=== PATIENT | male | born 1980 | race Caucasian/White ===

== ENCOUNTER 2017-01-18 02:03 | Emergency (ER) | payer BC ==
[~2017-01-18] VITALS: Ht 180.3 cm; Wt 80.0 kg
[2017-01-18 02:06] VITALS: BP 129/88; PULSE 112; RESP 15; TEMP 97.7; O2SAT 96
[2017-01-18] MEDS ORDERED: XANA2TAB2 PO (02:10)
[2017-01-18] MEDS ORDERED: DILA8TAB4 PO (02:10)
[2017-01-18 02:26] VITALS: BP 125/82; PULSE 97; RESP 18; O2SAT 96
--- NOTE | 2017-01-18 02:35 | PD ---
HPI Chief Complaint: Pain: Acute or Chronic Time Seen by Provider: 02:35 Travel History International Travel<30 days: No Contact w/Intl Traveler<30days: No Traveled to known affect area: No History of Present Illness HPI 36-year-old male came to the emergency room with history of left-sided chest pain and the rib area after he fell a week ago. Patient says the pain gets worse when he coughs deep. He also says that he has had this cough for 2-3 weeks. Patient is a heavy smoker. He has had cough and shortness of breath in the past which usually gets better with inhaler. Patient says he has inhaler at home but hasn't used it. When he first came in he was tachycardic. However patient after coming in the room his heart rate has been in the 80s. No history of fever or chills. No history of PE or DVT in patient or his family. No history of long distance travel, procedures or surgery and recent past. PFSH Past Medical History Narrative Medical List of his past medical, surgical, social and family history is reviewed from the nursing note. Anxiety: Yes Diminished Hearing: No Tetanus Vaccination: Unknown Influenza Vaccination: No Social History Alcohol Use: No Tobacco Use: No Substance Use: No Allergies-Medications (Allergen,Severity, Reaction): Coded Allergies: No Known Allergies (Unverified , 01/18/17) Comments No known drug allergies. Reported Meds & Prescriptions Reported Meds & Active Scripts Active Ventolin Hfa 18 GM Inh (Albuterol Sulfate) 90 Mcg/Act Aer 2 Puff INH Q4-6H PRN Reported Dilaudid (Hydromorphone HCl) 8 Mg Tab 8 Mg PO BID PRN Xanax (Alprazolam) 2 Mg Tab 2 Mg PO DAILY PRN Narrative Medication List of his home medications reviewed from the nursing note. Review of Systems Except as stated in HPI: all other systems reviewed are Neg Physical Exam Narrative GENERAL: Awake, alert, mild distress SKIN: Focused skin assessment warm/dry. HEAD: Atraumatic. Normocephalic. EYES: Pupils equal and round. No scleral icterus. No injection or drainage. ENT: No nasal bleeding or discharge. Mucous membranes pink and moist. NECK: Trachea midline. No JVD. CARDIOVASCULAR: Regular rate and rhythm. No murmur appreciated. RESPIRATORY: No accessory muscle use. Coarse breath sounds with end expiratory wheeze. Slight tenderness on the left lateral rib cage at seventh and eighth rib GASTROINTESTINAL: Abdomen soft, non-tender, nondistended. Hepatic and splenic margins not palpable. MUSCULOSKELETAL: No obvious deformities. No clubbing. No cyanosis. No edema. NEUROLOGICAL: Awake and alert. No obvious cranial nerve deficits. Motor grossly within normal limits. Normal speech. PSYCHIATRIC: Appropriate mood and affect; insight and judgment normal. Data Data Last Documented VS Vital Signs Date Time Temp Pulse Resp B/P (MAP) Pulse Ox O2 Delivery O2 Flow Rate FiO2 01/18/17 04:33 85 96 01/18/17 02:26 18 125/82 (96) Room Air 01/18/17 02:06 97.7 Orders Orders Ribs, Uni (W/Exp Cxr-Min 3vw) (01/18/17 ) Albuterol Neb (Albuterol Neb) (01/18/17 03:15) [facility] Medical Decision Making Medical Screen Exam Complete: Yes Emergency Medical Condition: Yes Medical Record Reviewed: Yes Differential Diagnosis COPD exacerbation, chest wall contusion, pneumonia, rib fracture Narrative Course 4:40 AM with series and chest x-rays within normal limits. Patient was given one albuterol which as per the patient makes him feel better. I asked the patient to take 50 steps around the pod and at the end of which I checked his oxygen saturation and pulse. Patient's oxygen saturation was 98% on room air and pulse of 85. I'm comfortable discharging him home. I have advised him to stop smoking. He will go home with albuterol prescription. Procedures EKG Prior to Arrival: No Diagnosis Primary Impression: Chest wall contusion Additional Impressions: Chest wall pain COPD exacerbation Needs smoking cessation education Referrals: Primary Care Physician 2 days Additional Instructions: Please return to the ER if the condition worsens or any other new concerns. He should stop smoking since it will make her condition worse. Take the albuterol 2 puffs every 4 hours till symptoms improve. Take Advil/ibuprofen/Motrin for the chest wall pain. Apply warm compresses alternating with cold compress on the area of the pain. Med/Other Pt SpecificInfo: Prescription(s) given Scripts Albuterol 18 GM Inh (Ventolin Hfa 18 GM Inh) 90 Mcg/Act Aer 2 PUFF INH Q4-6H Y for SHORTNESS OF BREATH, #1 INHALER 0 Refills Prov: Jessenia Villeda MD 01/18/17 Disposition: 01 DISCHARGE HOME Condition: Stable Jessenia Villeda MD Jan 18, 2017 02:35
[2017-01-18] MEDS ORDERED: RESP: ALBUTEROL 2.5 MG/3 ML NEB (SCH) NEB ONE (03:15)
--- NOTE | 2017-01-18 04:17 | RADRPT ---
EXAM DATE/TIME: 01/18/2017 03:34 [facility] COMPARISON: No previous studies available for comparison. INDICATIONS : Left rib pain post fall 1 week ago MEDICAL HISTORY : None. SURGICAL HISTORY : None. ENCOUNTER: Initial ACUITY: 1 week PAIN SCORE: 4/10 LOCATION: Left anterior ribs FINDINGS: Multiple views of the left ribs were performed. There is no evidence of displaced fracture. No dest ructive lesions or areas of periosteal thickening are seen. Expiratory view of the chest is negative for pneumothorax. The mediastinal structures are midline. Right metallic clavicular plate. CONCLUSION: Negative left rib series. Simón Weinstein MD on January 18, 2017 at 4:14 Board Certified Radiologist. This report was verified electronically.
[2017-01-18 04:33] VITALS: PULSE 85; O2SAT 96
[2017-01-18] MEDS ORDERED: VENTAER INH (04:41)
== END 2017-01-18 04:59 | disposition home or self-care (01) ==
LOC: NEPE 02:03
DX: S20.219A Contusion of unspecified front wall of thorax, initial encounter (principal); J44.1 Chronic obstructive pulmonary disease with (acute) exacerbation; F41.9 Anxiety disorder, unspecified; Z79.899 Other long term (current) drug therapy; X58.XXXA Exposure to other specified factors, initial encounter
CPT/HCPCS: 71101; 94664; 99283; J7613